=== PATIENT | female | born 1970 | race Hispanic/Latino ===

== ENCOUNTER → 2019-03-20 | Outpatient (CLI) | payer OTHER ==
[~2019-03-20] MED LIST: LORAZEPAM INJ 2 MG/ML VIAL ONE; NEXIUM40 MG
--- NOTE | 2019-03-20 14:47 | Diagnostic Imaging Report ---
Examination: MRI SPINE LUMBAR WITHOUT CONTRAST History: Low back pain radiating down the back of the left lower extremity. Left lumbar radiculopathy. Comparison studies: None Technique: Sagittal, coronal and axial T2 , sagittal T1 and STIR; axial spin density oblique. Findings: Number of lumbar vertebral bodies: Five. Alignment: Normal lordosis. No scoliosis. Soft tissues: No T2 hyperintense inflammatory changes. Posterior paraspinal soft tissues and muscles: No abnormality. Lower thoracic cord: Normal in signal and morphology. The tip of the conus is at bottom of L1.. Cauda equina: No masses. No arachnoiditis. Vertebrae: No fractures, infection or neoplasm. Degenerative changes: L1-L2 through L3-L4: No abnormalities. L4-L5: Mild diffuse disc bulge. No foraminal or canal stenosis. L5-S1: Small central disc protrusion superimposed on mild diffuse disc bulge. No foraminal or canal stenosis. IMPRESSION: Mild degenerative changes L4-L5 and L5-S1 without canal or foraminal stenosis Signed by: Dr. Linda Abraham M.D. on 03/20/2019 2:43 PM
== END ==
LOC: MRI 03-16 10:35
PROVIDERS: ATTEND Family Medicine
DX: M54.32 Sciatica, left side (principal)
CPT/HCPCS: 72148; 81025; J2060

== ENCOUNTER → 2024-06-29 | Outpatient (REF) | payer OTHER ==
[~2024-06-29] MED LIST changes: -LORAZEPAM INJ 2 MG/ML VIAL ONE
== END ==
LOC: RAD 10:52
PROVIDERS: ATTEND Psychiatry & Neurology Neurology
DX: M54.50 Low back pain, unspecified (principal)
CPT/HCPCS: 72110